=== PATIENT | female | born 1950 | race Caucasian/White ===

== ENCOUNTER 2021-06-26 13:13 | Emergency (ER) | payer OTHER ==
[~2021-06-26] VITALS: Ht 160 cm; Wt 74.8 kg
[2021-06-26] MEDS ORDERED: ZOFRAN4 MG PO (13:28)
[2021-06-26] MEDS ORDERED: VENLAFAXINE HC225 MG PO (13:28)
[2021-06-26 13:46] LABS: BASOPHILS ABSOLUTE AUTO 0.02 K/mm3 (0.00-0.23); BASOPHILS PERCENT AUTO 0 % (0-2); EOSINOPHILS PERCENT AUTO 0 % (0-6); Hematocrit 40.9 % (33.0-51.0); Hemoglobin 13.8 g/dL (11.5-16.0); IMMATURE GRAN ABSOLUTE AUTO 0.03 K/mm3 (0.00-0.10); IMMATURE GRAN PERCENT AUTO 1 % (0-1); LYMPHOCYTES ABSOLUTE AUTO 0.63 K/mm3 (0.84-5.20); LYMPHOCYTES PERCENT AUTO 11 % (21-46); MONOCYTES ABSOLUTE AUTO 0.47 K/mm3 (0.16-1.47); MONOCYTES PERCENT AUTO 8 % (4-13); Mean Corpuscular HGB 32.2 pg (26.0-34.0); Mean Corpuscular HGB Conc 33.7 g/dL (31.5-36.5); Mean Corpuscular Volume 95 fL (80-100); Mean Platelet Volume 10.6 fL (9.1-12.4); NEUTROPHILS ABSOLUTE AUTO 4.66 K/mm3 (1.96-9.15); NEUTROPHILS PERCENT AUTO 80 % (41-73); Platelet Count 158 K/mm3 (150-400); RDW Coefficient Variation 12.2 % (11.7-14.2); RDW Standard Deviation 43.4 fL (35.1-46.3); Red Blood Cell Count 4.29 M/mm3 (3.80-5.20); White Blood Cell Count 5.81 K/mm3 (4.00-11.30)
[2021-06-26 14:11] LABS: Alanine Aminotransfer (ALT/SGP 29 U/L (12-78); Albumin, Blood 3.3 g/dL (3.4-5.0); Albumin/Globulin Ratio 0.8 (0.8-1.8); Alk Phos 97 U/L (50-136); Anion Gap 8 mmol/L (6-16); Aspartate Aminotrans (AST/SGOT 29 U/L (12-37); Bilirubin, Total 0.3 mg/dL (0.1-1.0); Blood Urea Nitrogen 10 mg/dL (8-24); Bun/Creatinine Ratio 14.1 (12.0-20.0); CO2, Blood 27 mmol/L (21-32); Calcium, Blood 8.7 mg/dL (8.5-10.1); Chloride, Blood 101 mmol/L (98-108); Creatinine, Blood 0.71 mg/dL (0.40-1.00); Glomerular Filtration Rate >60 (60-); Glucose, Blood 99 mg/dL (70-99); Potassium, Blood 3.5 mmol/L (3.5-5.5); Sodium, Blood 136 mmol/L (136-145); Total Protein, Blood 7.3 g/dL (6.4-8.2)
[2021-06-26] MEDS ORDERED: Promethazine HC25 M1 PO (14:26)
== END 2021-06-26 14:59 | disposition home or self-care (01) ==
LOC: ER 13:13
PROVIDERS: Emergency Medicine
DX: U07.1 COVID-19 (principal)
CPT/HCPCS: 80053; 85025; 99284

== ENCOUNTER 2022-10-26 16:12 | Emergency (ER) | payer OTHER ==
[~2022-10-26] VITALS: Ht 160 cm; Wt 79.4 kg
[~2022-10-26 16:12] MED LIST changes: -CEPHALEXIN500 M2 PO; -VENLAFAXINE HCL75 M1 PO
[2022-10-26] MEDS ORDERED: VENLAFAXINE HCL75 M1 PO (17:51)
[2022-10-26 18:00] LABS: International Normalized Ratio 1.21; Prothrombin Time Results 12.5 Sec (9.7-11.5)
[2022-10-26 18:18] LABS: Source, Urine Clean Catch
[2022-10-26 18:24] LABS: Appearance, Urine Clear (Clear); Bilirubin, Urine Neg (Neg); Blood, Urine 4+ (Neg); Glucose Qualitative, Urine Neg (Neg); Ketones, Urine Neg (Neg); Leukocyte Esterase, Urine Neg (Neg); Nitrite, Urine Neg (Neg); Protein, Urine Neg (Neg); Urobilinogen, Urine NORM (Normal)
[2022-10-26 18:36] LABS: Color, Urine Pale Yellow (P-Yellow)
[2022-10-26 18:38] LABS: Bacteria Few /hpf; Red Blood Cells, Urine 0-2 /hpf (0-2); Squamous Epithelial Cells Few /hpf (Few); White Blood Cells, Urine 0-2 /hpf (0-5)
[2022-10-26 18:39] LABS: Amorphous Light (0-Heavy)
[2022-10-26] MEDS ORDERED: CEPHALEXIN500 M2 PO (19:48)
== END 2022-10-26 20:00 | disposition home or self-care (01) ==
LOC: ER 16:12
PROVIDERS: Emergency Medicine; Physician Assistant
DX: L03.116 Cellulitis of left lower limb (principal); D72.829 Elevated white blood cell count, unspecified; D69.6 Thrombocytopenia, unspecified; I82.812 Embolism and thrombosis of superficial veins of left lower extremity
CPT/HCPCS: 36415; 71260; 81001; 85384; 85610; 93971; A9270; Q9967

== ENCOUNTER → 2022-10-26 | Outpatient (CLI) | payer OTHER ==
[~2022-10-26] MED LIST: CEPHALEXIN500 M2 PO; Promethazine HC25 M1 PO; VENLAFAXINE HC225 MG PO; VENLAFAXINE HCL75 M1 PO; ZOFRAN4 MG PO
[2022-10-26 15:38] LABS: Hematocrit 35.4 % (33.0-51.0); Mean Corpuscular HGB 33.1 pg (26.0-34.0); Mean Corpuscular HGB Conc 33.9 g/dL (31.5-36.5); Mean Corpuscular Volume 98 fL (80-100); Mean Platelet Volume 9.1 fL (9.1-12.4); NRBC ABSOLUTE 0.51 K/mm3 (0.00-0.02); NRBC Auto 0.4 /100 WBC (0.0-0.2); RDW Coefficient Variation 14.8 % (11.7-14.2); Red Blood Cell Count 3.62 M/mm3 (3.80-5.20)
[2022-10-26 15:49] LABS: Albumin, Blood 3.9 g/dL (3.4-5.0); Albumin/Globulin Ratio 1.1 (0.8-1.8); Bilirubin, Total 0.3 mg/dL (0.1-1.0); Bun/Creatinine Ratio 13.8 (12.0-20.0); Calcium, Blood 8.7 mg/dL (8.5-10.1); Creatinine, Blood 0.87 mg/dL (0.40-1.00); Globulin, Blood 3.6 g/dL (2.2-4.0); Potassium, Blood 3.8 mmol/L (3.5-5.5); Total Protein, Blood 7.5 g/dL (6.4-8.2)
[2022-10-26 15:54] LABS: Platelet Count 29 K/mm3 (150-400); White Blood Cell Count 124.95 K/mm3 (4.00-11.30)
[2022-10-26 16:00] LABS: BAND PERCENT MAN 1 % (0-8); BASOPHILS PERCENT MAN 0 % (0-2); EOSINOPHILS PERCENT MAN 0 % (0-6); LYMPHOCYTES ABSOLUTE MAN 2.49 K/mm3 (0.84-5.20); LYMPHOCYTES PERCENT MAN 2 % (21-46); MONOCYTES ABSOLUTE MAN 1.24 K/mm3 (0.16-1.47); MONOCYTES PERCENT MAN 1 % (4-13); TOTAL CELLS COUNTED 100
[2022-10-26 16:04] LABS: BLASTS PERCENT MAN 96 % (0-0)
[2022-10-26 16:07] LABS: NEUTROPHILS ABSOLUTE MAN 1.24 K/mm3 (1.96-9.15); SEG NEUTROPHILS PERCENT MAN 0 % (41-73)
== END | disposition home or self-care (01) ==
LOC: LAB 15:34 → LAB SHORT 15:34
PROVIDERS: Physician Assistant Medical
DX: R50.9 Fever, unspecified (principal); R60.9 Edema, unspecified
CPT/HCPCS: 80053; 85025; 85379